=== PATIENT | female | born 1975 | race Caucasian/White ===

== ENCOUNTER 2022-04-27 12:42 | Emergency (ER) | payer MEDICAID ==
[~2022-04-27] VITALS: Ht 167.6 cm; Wt 106.1 kg
[2022-04-27 12:55] VITALS: BP 137/84
[2022-04-27] MEDS ORDERED: IBUPROFEN 600 MG TAB PO ONE (13:40)
--- NOTE | 2022-04-27 14:14 | NUR ---
PT NOT FOUND IN LOBBY OR OUTSIDE LOBBY
[2022-04-27 14:22] VITALS: BP 137/84
--- NOTE | 2022-04-27 14:22 | NUR ---
pt eloped at this time, pt not in lobby
[2022-04-28] MEDS ORDERED: ACET-8905 PO (03:03)
[2022-04-28] MEDS ORDERED: NAPR-54 PO (03:03)
== END 2022-04-27 14:21 | disposition left against medical advice (07) ==
LOC: MED 12:42
DX: M25.551 Pain in right hip (principal); E11.9 Type 2 diabetes mellitus without complications; Z79.4 Long term (current) use of insulin; Z79.899 Other long term (current) drug therapy
CPT/HCPCS: 99281

== ENCOUNTER 2022-04-27 22:08 | Emergency (ER) | payer MEDICAID ==
[~2022-04-27] VITALS: Ht 167.6 cm; Wt 107.5 kg
[2022-04-27 22:41] VITALS: BP 160/92
--- NOTE | 2022-04-28 02:55 | NUR ---
Dr. Ware examining patient.
[2022-04-28] MEDS ORDERED: HYDROcodone/APAP 5/325 MG 1 TAB TAB PO ONE (03:00)
[2022-04-28] MEDS ORDERED: KETOROLAC 30 MG/ML VIAL IM ONE (03:00)
[2022-04-28] MEDS ORDERED: NAPR-54 PO (03:03)
[2022-04-28] MEDS ORDERED: ACET-8905 PO (03:03)
[2022-04-28 03:27] VITALS: BP 142/92
--- NOTE | 2022-04-28 03:27 | NUR ---
Patient discharged with v/s stable. Written and verbal after care instructions given and explained. Patient alert, oriented and verbalized understanding of instructions. Ambulatory with steady gait. All questions addressed prior to discharge. ID band removed. Patient advised to follow up with PMD. Rx of Naproxen and Hydrocodone/Acetaminophen given. Patient educated on indication of medication including possible reaction and side effects. Opportunity to ask questions provided and answered.
== END 2022-04-28 03:21 | disposition home or self-care (01) ==
LOC: MED 22:08
DX: M25.551 Pain in right hip (principal)
CPT/HCPCS: 73502; 96372; 99283; J1885